=== PATIENT | female | born 1975 | race Caucasian/White ===

== ENCOUNTER 2016-09-05 14:26 | Emergency (ER) | payer BC ==
[2016-09-05 15:38] LABS: BASO % 0.6 % (0.2-1.0); EOS # 0.1 (0.0-0.5); EOS % 2.2 % (0.9-2.9); HEMATOCRIT 39.3 % (37.0-47.0); IMM NEUT% 0.5 % (0-1); LYMPH # 1.8 (1.0-4.8); LYMPH % 27.2 % (15-45); MEAN CELL VOLUME 94.7 fl (81.0-99.0); MEAN CORPUSCULAR HEMOGLOBIN 31.3 pg (27.0-31.0); MEAN CORPUSCULAR HGB CONC 33.1 g/dl (33.0-37.0); MEAN PLATELET VOLUME 9.3 fl (7.4-10.4); MONO # 0.5 (0.0-0.8); MONO % 7.6 % (4-12); NEUT % 61.9 % (43-75); PLATELET COUNT 232 K/mm3 (130-400); RED CELL DISTRIBUTION WIDTH 11.9 % (11.5-14.5)
--- NOTE | 2016-09-05 15:47 | RAD ---
Exam: Two-view chest COMPARISON: None INDICATION: Shortness of breath for 2 days. FINDINGS: PA and lateral views of the chest were obtained and demonstrate a normal cardiomediastinal silhouette. Lungs are well-inflated. There is no focal airspace disease or pleural effusion. Bones of the chest wall within normal limits. IMPRESSION: No acute pulmonary process.
[2016-09-05 15:57] LABS: ALB/GLOB RATIO 1.6 (>1.0); ALBUMIN 4.2 gm/dL (3.5-5.7); CALCIUM 9.1 mg/dL (8.6-10.3)
== END 2016-09-05 16:56 | disposition home or self-care (01) ==
LOC: ED 14:26
DX: R07.9 Chest pain, unspecified (principal); R06.02 Shortness of breath